=== PATIENT | female | born 1950 | race Caucasian/White ===

== ENCOUNTER → 2022-01-19 13:42 | Outpatient (BNVA) | payer MEDICARE, SELFPAY | PROVIDERS: PCP Internal Medicine; Visit Provider Anesthesiology | DX: M48.00 Spinal stenosis, site unspecified (principal); M51.36 Other intervertebral disc degeneration, lumbar region; M43.16 Spondylolisthesis, lumbar region; G89.4 Chronic pain syndrome; M46.1 Sacroiliitis, not elsewhere classified; Z96.653 Presence of artificial knee joint, bilateral | CPT/HCPCS: 99202 ==

== ENCOUNTER 2022-02-22 06:36 | Outpatient (REF) | payer MEDICARE, SELFPAY ==
--- NOTE | ~2022-02-22 | FL_ITS ---
INDICATION: Intraoperative fluoroscopy. FLUOROSCOPY: Fluoroscopy Time: 0.4 minutes Dose: 9.46 mGy Images saved: 2 FINDINGS: Multiple intraoperative fluoroscopic images are submitted during reported bilateral sacroiliac joint injection. Correlation with operative report. Evaluation is limited secondary to fluoroscopic technique. IMPRESSION: Intra-operative fluoroscopic imaging provided by radiology during reported bilateral sacroiliac joint injection. Please refer to operative note for further information.
== END 2022-02-22 06:37 | disposition home or self-care (01) ==
LOC: CF 06:36
PROVIDERS: Visit Provider Anesthesiology
DX: M46.1 Sacroiliitis, not elsewhere classified (principal)
CPT/HCPCS: 27096

== ENCOUNTER → 2022-02-24 08:41 | Outpatient (BNVA) | payer MEDICARE, SELFPAY | PROVIDERS: PCP Internal Medicine; Visit Provider Anesthesiology | DX: M48.00 Spinal stenosis, site unspecified (principal); M51.36 Other intervertebral disc degeneration, lumbar region; M43.16 Spondylolisthesis, lumbar region; M46.1 Sacroiliitis, not elsewhere classified; M17.0 Bilateral primary osteoarthritis of knee; G89.4 Chronic pain syndrome; Z96.653 Presence of artificial knee joint, bilateral | CPT/HCPCS: Q3014 ==

== ENCOUNTER 2022-05-17 12:01 | Outpatient (REF) | payer MEDICARE, OTHER, SELFPAY ==
[2022-05-17 13:40] LABS: MANUAL DIFF FLAG NO
[2022-05-17 13:49] LABS: Basophils Percent Auto 0.4 % (0-2); Eosinophils Absolute Auto 0.3 X10*3/uL (0.0-0.4); Eosinophils Percent Auto 3.5 % (0-4); Hemoglobin 12.7 g/dl (12.0-16.0); Imm Gran Abs Auto 0.03 X10*3/uL (0.00-0.03); Imm Gran Pct Auto 0.4 % (0.0-0.4); Lymphocytes Absolute Auto 2.3 X10*3/uL (1.2-4.9); Lymphocytes Percent Auto 27.9 % (20-40); Mean Corpuscular HGB Conc 32.6 g/dl (31.0-35.0); Mean Corpuscular Hemoglobin 28.7 pg (27.0-33.0); Mean Corpuscular Volume 88.2 fL (80.0-98.0); Mean Platelet Volume 10.6 fL (9.4-12.3); Monocytes Absolute Auto 0.6 X10*3/uL (0.1-1.2); Monocytes Percent Auto 7.5 % (2-11); Neutrophils Percent Auto 60.3 % (45-73); Platelet Count 279 X10*3/uL (160-400); Red Blood Count 4.42 X10*6/uL (4.20-5.50); Red Cell Distribution Width 13.1 % (11.0-16.0); White Blood Count 8.4 X10*3/uL (4.8-10.8)
[2022-05-17 13:54] LABS: Prothrombin Time 11.6 SEC (10.0-13.1)
== END 2022-05-17 12:02 | disposition home or self-care (01) ==
LOC: HO.10HDL 12:01
PROVIDERS: Visit Provider Anesthesiology
DX: C95.90 Leukemia, unspecified not having achieved remission (principal)
CPT/HCPCS: 36415; 85025; 85610

== ENCOUNTER 2022-06-10 06:30 | Day surgery (SDC) | payer MEDICARE, OTHER, SELFPAY ==
--- NOTE | ~2022-06-10 | FL_ITS ---
EXAMINATION: XR FLUOROSCOPY WITH IMAGES CLINICAL INFORMATION: SI joint intervention stimulation trial COMPARISON: Fluoroscopic spot views from pain management procedure 02/22/2022 TECHNIQUE: Fluoroscopy Supervised By: Dr. Howard Rodas. Fluoroscopy Time: 0.8 minutes. Cumulative Dose: 17.2 mGy. DAP: 4.70 Gycm2. Images: 2. FINDINGS: There are 2 electrode leads seen ascending the bilateral paraspinal region with tips near the lower aspect SI joints on each side. There is no kinking or fracture of the visualized leads. There is artifact from a sponge likely overlying the patient, right pelvis. FL/FL guidance in OR IMPRESSION: Fluoroscopy for pain management procedure.
[2022-06-10 06:41] VITALS: BMI 34.9
--- NOTE | 2022-06-10 06:44 | PC.NURSE ---
mrsa ordered, dr yoon does not want
[2022-06-10 06:55] VITALS: BP 135/61; PULSE 90; RESP 16; TEMP 36.3; O2SAT 96
[2022-06-10 07:04] LABS: Glucose, Whole Blood 131 mg/dL (60-115)
--- NOTE | 2022-06-10 07:04 | P.HPSUR_ITS ---
Pre-Procedural Eval Section A Date of Service: 06/10/22 The patient is an INPATIENT: No Changes since office visit: Yes Patient answered all questions The History & Physical has been completed within 30 days and I have reviewed it.: No Section B Chief Complaint: Sacroiliitis, not elsewhere classified Details of Present Illness: as above Relevant Family History (Specify if Yes): No Relevant Social History: None Present Medications: see Short Stay Collaborative assessment Medical History: No relevant PMH History of Previous Operations: No relevant previous surgery Allergies: Allergies Allergy/AdvReac Type Severity Reaction Status Date / Time acetaminophen [From Percocet] AdvReac Nausea and Verified 02/24/22 08:38 Vomiting celecoxib [From Celebrex] AdvReac Shortness Verified 02/24/22 08:38 of Breath diclofenac AdvReac acid reflux Verified 02/24/22 08:38 eszopiclone [From Lunesta] AdvReac sleep walk Verified 02/24/22 08:38 fluoxetine [From Prozac] AdvReac seeing Verified 02/24/22 08:38 trails gabapentin AdvReac Hypertensio Verified 02/24/22 08:38 n meloxicam AdvReac Shortness Verified 02/24/22 08:38 of Breath meperidine [From Demerol] AdvReac Nausea and Verified 02/24/22 08:38 Vomiting NSAIDS (Non-Steroidal AdvReac acid reflux Verified 02/24/22 08:38 Anti-Inflamma oxycodone [From Percocet] AdvReac Nausea and Verified 02/24/22 08:38 Vomiting venlafaxine [From Effexor] AdvReac hot flashes Verified 02/24/22 08:38 zolpidem [From Ambien] AdvReac Unknown Verified 02/24/22 08:38 nickel Allergy Unknown Uncoded 02/24/22 08:38 cholestryram powder AdvReac Muscle Pain Uncoded 02/24/22 08:38 statin drugs AdvReac Muscle Pain Uncoded 02/24/22 08:38 Review of Systems Sugical H&P ROS: Negative: Constitution, Cardiovascular, Respiratory, Neurological, Psychiatric, Allergic/Immunologic, Gastrointestinal, Musculoskeletal, Integumentary and Eyes/Ears/Nose/Throat and Yes, Specify: Hem- Onc, Genitourinary (sacroiliitis) and Endocrine (DM) Exam Surgical H&P Exam: Normal: HEENT, Normal: Heart, Normal: Lungs, Normal: Ext remities, Normal: Abdomen, Normal: Skin and Normal: Neurological Plan Diagnosis/Plan: Unchanged I have reviewed the history and physical and performed a pertinent physical examination on my patient. No changes have occurred unless specified. Time Spent With Patient Time: Total time managing care of this patient today ____ minutes.
--- NOTE | 2022-06-10 08:24 | HO.ANESPROP2 ---
HPI - Anesthesia Eval Consult details Narrative: chronic back pain PMFSH Active Problems Active Problems: All Active Problems (Updated 05/16/22 @ 14:49 by Howard Rodas MD) Central stenosis of spinal canal (Acute) Disc degeneration, lumbar (Acute) Spondylolisthesis, lumbar region (Acute) Chronic pain syndrome (Acute) Sacroiliitis (Acute) Osteoarthritis of knees, bilateral (Acute) Status post total knee replacement, bilateral (Acute) Leukemia (Acute) Leukemia (Acute) Past Medical History Medical History (Updated 05/16/22 @ 14:49 by Howard Rodas MD) Arthritis Bursitis of both knees Chronic depression Chronic myeloid leukemia Dermatographia Diabetes High blood pressure Moderate COPD (chronic obstructive pulmonary disease) Tendinitis of both knees Family History Family history of problems with anesthesia: No Surgical History Surgical History (Updated 06/08/22 @ 15:38 by Kenzie Ching RN) History of total bilateral knee replacement History of Problems with Anesthesia: No Social History Social History Patient Tobacco Use Status: Former Tobacco user Use of substances other than those prescribed or required for medical reasons: No Advance Directives: No Advance Directives Information Provided: Yes Meds Allergies Allergy/AdvReac Type Severity Reaction Status Date / Time acetaminophen [From Percocet] AdvReac Nausea and Verified 02/24/22 08:38 Vomiting celecoxib [From Celebrex] AdvReac Shortness Verified 02/24/22 08:38 of Breath diclofenac AdvReac acid reflux Verified 02/24/22 08:38 eszopiclone [From Lunesta] AdvReac sleep walk Verified 02/24/22 08:38 fluoxetine [From Prozac] AdvReac seeing Verified 02/24/22 08:38 trails gabapentin AdvReac Hypertensio Verified 02/24/22 08:38 n meloxicam AdvReac Shortness Verified 02/24/22 08:38 of Breath meperidine [From Demerol] AdvReac Nausea and Verified 02/24/22 08:38 Vomiting NSAIDS (Non-Steroidal AdvReac acid reflux Verified 02/24/22 08:38 Anti-Inflamma oxycodone [From Percocet] AdvReac Nausea and Verified 02/24/22 08:38 Vomiting venlafaxine [From Effexor] AdvReac hot flashes Verified 02/24/22 08:38 zolpidem [From Ambien] AdvReac Unknown Verified 02/24/22 08:38 nickel Allergy Unknown Uncoded 02/24/22 08:38 cholestryram powder AdvReac Muscle Pain Uncoded 02/24/22 08:38 statin drugs AdvReac Muscle Pain Uncoded 02/24/22 08:38 Home Medications Medication Instructions Recorded Confirmed Last Taken Type acetaminophen 300 mg-codeine 30 mg tab PO 01/19/22 Unknown History tablet albuterol sulfate 90 mcg/actuation 2 puff inhalation Q4H PRN wheezing 01/19/22 Unknown History aerosol inhaler bupropion HCl 150 mg 24 hr tablet, 150 mg PO QAM 01/19/22 Unknown History extended release ezetimibe 10 mg tablet 10 mg PO DAILY 01/19/22 Unknown History fluticasone propionate 50 1 spray intranasal DAILY 01/19/22 Unknown History mcg/actuation nasal spray,suspension losartan 50 mg tablet 50 mg PO DAILY 01/19/22 Unknown History nilotinib 200 mg capsule (Tasigna) 400 mg PO BID 01/19/22 Unknown History Exam Exam Date and Time: June 10, 2022823 Height,Weight and Vital Signs: Height 5 ft 2 in Weight 86.636 kg Last Vital Signs Temp 97.4 F 06/10/22 06:55 Pulse 90 06/10/22 06:55 Resp 16 06/10/22 06:55 BP 135/61 06/10/22 06:55 Pulse Ox 96 06/10/22 06:55 O2 Del Method 06/10/22 06:55 Pertinent Lab Results Pertinent Lab Results: Laboratory Tests 06/10/22 07:00 POC Glucose 131 H Airway Mallampati Class: II TM Dist: >3cm Neck ROM: Full Denture: Upper and Lower Heart: Rr Lungs: Cta Assessment and Plan Final Anesthetic Review Family History of Problems with Anesthesia: No History of Problems with Anesthesia: No NPO: Yes ASA Class: III Final Preanesthetic Review: No Changes in Pt Med Stat, Meds/Allgs Chart Reviewed, Consent Obtained/Reviewed and Anes Risks/Benef Reviewed Patient Risk: Intermediate Procedure Risk: Low Anesthetic Plan Anesthetic Plan: MAC: Disposition: Standard PACU
[2022-06-10 09:19] VITALS: BP 121/75; PULSE 81; RESP 16; TEMP 36.4; O2SAT 98
[2022-06-10 09:33] VITALS: BP 142/75; PULSE 84; RESP 18; O2SAT 97
--- NOTE | 2022-06-10 09:40 | PM.OP ---
Brief Operative Note Date of Service: 06/10/22 Pre-op diagnosis: sacroiliitis Procedure: trial of PNS stimwave bilateral SI joint innervation stimulation. Surgeon: Howard Rodas MD Anesthesia: MAC Was an Pantograph Engraver used for this Procedure?: No Estimated blood loss (mL): 3 Condition: stable Disposition: PACU
--- NOTE | 2022-06-10 09:42 | P.OP_ITS ---
Operative Note Operative Note Date of Service: 06/10/22 Narrative: Trial of the sacroiliac joint innervation stimulation stim wave bilateral. Informed consent was thoroughly explained to the patient before moving her to the operating room.? Risks and benefits were explained and all the questions were answered. Patient ? was taken to the operating room, she was positioned prone on the operating table with the pillow under her pelvis.? [place] [employer] monitors were applied and patient was deeply sedated. Time out was performed delineated correct name and of the patient, site, side and nature of the procedure, risks of DVT and fire, need for antibiotics. she received 2 g of cefazolin approximately 15 minutes before the onset of the procedure. Her lower back and buttocks was prepped with ChloraPrep twice, and draped with sterile towels.? Sterilely draped C-arm was brought over the operating field and sq picture of patient's pelvis was demonstrated on the screen.? Attention was concentrated on the? Right SI joint first. The sacral ala on the? right was chosen as a target of the needles insertion. 3 cm above the sacral ala projection in the lumbar area injection of the local anesthetic was performed in the skin. Using 11 blade scalpel small lety in the skin was performed. 16 gauge introducer stimwave malleable needle? was inserted through the lety and advanced toward the sacral alae on the right.? After needle met the bone on sacral ala it was redirected slightly posterior and continued to advance alongside the curvature of the sacral bone.? When the tip of the needle reached the end of the projection of the sacroiliac joint inferiorly advancement stopped and guitar wire was introduced into the needle.? It went through the needle without difficulties.. ?After that 8 electrode stimulating array lead was inserted through the needle and advanced to the desired position.? The needle was removed and care was taken not to dislodge the lead.? The driving stylet was removed from the lead and it was replaced with stimulating copper wire antenna electrode.? After that the knot was tied just below the level of the 2nd antenna contact.? Mastisol was applied to the skin a and Steri-Strips was used to fix the stimulating leads to the skin. After that the attention was concentrated on the left side where the procedure was performed in the mirroring fashion. Upon completion of the electrodes insertion sterile dressing applied, stimulating pad was applied and taped to the skin using Medipore tape. Upon completion of the procedure the patient was awaken she was taken outside of the operating room to recovery room where she recovered uneventfully.
[2022-06-10 09:48] VITALS: BP 142/67; PULSE 80; RESP 18; TEMP 36.6; O2SAT 97
[2022-06-10 10:27] LABS: MRSA Nasal PCR NEGATIVE (Negative); SA Nasal PCR NEGATIVE (Negative)
== END 2022-06-10 10:45 | disposition home or self-care (01) ==
PROVIDERS: Nurse Practitioner Family; PCP Internal Medicine; Visit Provider Anesthesiology
PROC: (CPT 64555; principal; 2022-06-10 07:30)
DX: M46.1 Sacroiliitis, not elsewhere classified (principal); G89.4 Chronic pain syndrome; M48.00 Spinal stenosis, site unspecified; M43.16 Spondylolisthesis, lumbar region; M51.36 Other intervertebral disc degeneration, lumbar region; M17.0 Bilateral primary osteoarthritis of knee; E11.9 Type 2 diabetes mellitus without complications; C92.11 Chronic myeloid leukemia, BCR/ABL-positive, in remission; Z92.21 Personal history of antineoplastic chemotherapy; J44.9 Chronic obstructive pulmonary disease, unspecified; F32.A Depression, unspecified; Z79.51 Long term (current) use of inhaled steroids; Z79.899 Other long term (current) drug therapy; Z88.8 Allergy status to other drugs, medicaments and biological substances; Z96.653 Presence of artificial knee joint, bilateral; Z87.891 Personal history of nicotine dependence
CPT/HCPCS: 64555 ×2; 82947; 87640; 87641; C1897; J0690; J2250; J2795

== ENCOUNTER → 2022-06-16 08:31 | Outpatient (BNVA) | payer MEDICARE, OTHER, SELFPAY | PROVIDERS: PCP Internal Medicine; Visit Provider Anesthesiology | DX: M48.00 Spinal stenosis, site unspecified (principal); M51.36 Other intervertebral disc degeneration, lumbar region; M43.16 Spondylolisthesis, lumbar region; M46.1 Sacroiliitis, not elsewhere classified; M17.0 Bilateral primary osteoarthritis of knee; G89.4 Chronic pain syndrome; Z96.653 Presence of artificial knee joint, bilateral | CPT/HCPCS: 99212 ==

== ENCOUNTER 2022-07-11 06:37 | Day surgery (SDC) | payer MEDICARE, OTHER, SELFPAY ==
[2022-06-21 09:09] VITALS: BMI 36.2
--- NOTE | 2022-07-07 14:44 | MHC.SHP ---
Pre-Procedural Eval Section A Date of Service: 07/07/22 The patient is an INPATIENT: No Changes since office visit: No Cold of Flu in the past 2 weeks, No New Medical Problems, No Changes in Medication and No Patient answered all questions The History & Physical has been completed within 30 days and I have reviewed it.: Yes Section B Chief Complaint: Age-related nuclear cataract, left eye Allergies: Allergies Allergy/AdvReac Type Severity Reaction Status Date / Time fluoxetine [From Prozac] AdvReac Severe seeing Verified 06/21/22 09:05 trails celecoxib [From Celebrex] AdvReac Intermediate Shortness Verified 06/21/22 09:05 of Breath diclofenac AdvReac Intermediate acid reflux Verified 06/21/22 09:05 eszopiclone [From Lunesta] AdvReac Intermediate sleep walk Verified 06/21/22 09:05 gabapentin AdvReac Intermediate Hypertensio Verified 06/21/22 09:05 n meloxicam AdvReac Intermediate Shortness Verified 06/21/22 09:05 of Breath meperidine [From Demerol] AdvReac Intermediate Nausea and Verified 06/21/22 09:05 Vomiting NSAIDS (Non-Steroidal AdvReac Intermediate acid reflux Verified 06/21/22 09:05 Anti-Inflamma oxycodone [From Percocet] AdvReac Intermediate Nausea and Verified 06/21/22 09:05 Vomiting venlafaxine [From Effexor] AdvReac Intermediate hot flashes Verified 06/21/22 09:05 zolpidem [From Ambien] AdvReac Unknown Unknown Verified 06/21/22 09:06 nickel Allergy Unknown Unknown Uncoded 06/21/22 09:06 cholestryram powder AdvReac Intermediate Muscle Pain Uncoded 06/21/22 09:06 statin drugs AdvReac Intermediate Muscle Pain Uncoded 06/21/22 09:06 Plan Diagnosis/Plan: Unchanged I have reviewed the history and physical and performed a pertinent physical examination on my patient. No changes have occurred unless specified. Time Spent With Patient Time: Total time managing care of this patient today ____ minutes.
[2022-07-11 07:08] VITALS: BP 145/75; PULSE 72; RESP 18; TEMP 36.6; O2SAT 96
[2022-07-11 07:22] LABS: Glucose, Whole Blood 119 mg/dL (60-115)
--- NOTE | 2022-07-11 07:24 | P.CONAN_ITS ---
[facility], [facility] Active Problems Active Problems: All Active Problems (Updated 06/21/22 @ 09:04 by Kenzie Ching RN) Central stenosis of spinal canal (Acute) Disc degeneration, lumbar (Acute) Spondylolisthesis, lumbar region (Acute) Chronic pain syndrome (Acute) Sacroiliitis (Acute) Osteoarthritis of knees, bilateral (Acute) Status post total knee replacement, bilateral (Acute) Leukemia (Acute) Leukemia (Acute) Past Medical History Medical History (Updated 06/21/22 @ 09:04 by Kenzie Ching RN) Arthritis Bursitis of both knees Chronic depression Chronic myeloid leukemia Dermatographia Diabetes Elevated cholesterol High blood pressure Lumbar stenosis Moderate COPD (chronic obstructive pulmonary disease) Osteopenia Tendinitis of both knees Uterine cancer Family History Family history of problems with anesthesia: No Surgical History Surgical History (Updated 06/21/22 @ 09:04 by Kenzie Ching RN) History of bilateral carpal tunnel release History of breast lump/mass excision History of dilatation and curettage History of excision of pilonidal cyst History of total bilateral knee replacement Hx of colonoscopy Hx of hysterectomy Hx of left knee surgery Hx of tonsillectomy History of Problems with Anesthesia: No Social History Social History Are you a primary personal carer to a significant other at home: No Do you presently have visiting nurse or other home services: Yes (home health aid 3X/week) Patient Tobacco Use Status: Former Tobacco user Quit Date: 1999 Tobacco use type: Cigarette Use of substances other than those prescribed or required for medical reasons: No Have you been hit, kicked, punched, or otherwise hurt by someone within the past year? If so, by whom?: No Are you DNR?: No Advance Directives: No Advance Directives Information Provided: Yes (brochure mailed) Advance Directives on File: No Recently lost weight without trying: No Eating poorly because of decreased appetite: No Nutrition Risks: No Nutritional Risk Poor oral hygiene: No (upper & lower full denture) Meds Allergies Allergy/AdvReac Type Severity Reaction Status Date / Time fluoxetine [From Prozac] AdvReac Severe seeing Verified 06/21/22 09:05 trails celecoxib [From Celebrex] AdvReac Intermediate Shortness Verified 06/21/22 09:05 of Breath diclofenac AdvReac Intermediate acid reflux Verified 06/21/22 09:05 eszopiclone [From Lunesta] AdvReac Intermediate sleep walk Verified 06/21/22 09:05 gabapentin AdvReac Intermediate Hypertensio Verified 06/21/22 09:05 n meloxicam AdvReac Intermediate Shortness Verified 06/21/22 09:05 of Breath meperidine [From Demerol] AdvReac Intermediate Nausea and Verified 06/21/22 09:05 Vomiting NSAIDS (Non-Steroidal AdvReac Intermediate acid reflux Verified 06/21/22 09:05 Anti-Inflamma oxycodone [From Percocet] AdvReac Intermediate Nausea and Verified 06/21/22 09:05 Vomiting venlafaxine [From Effexor] AdvReac Intermediate hot flashes Verified 06/21/22 09:05 zolpidem [From Ambien] AdvReac Unknown Unknown Verified 06/21/22 09:06 nickel Allergy Unknown Unknown Uncoded 06/21/22 09:06 cholestryram powder AdvReac Intermediate Muscle Pain Uncoded 06/21/22 09:06 statin drugs AdvReac Intermediate Muscle Pain Uncoded 06/21/22 09:06 Active Medications: Current Medications Albuterol Sulfate (Albuterol Sulfate (0.083%) 2.5 Mg/3 Ml Vial.Neb) 2.5 mg INHALE ONCE PRN PRN Reason: Shortness of Breath/Wheezing Lactated Ringer's (Lr) 500 mls @ 50 mls/hr IV .Q10H ANTON Stop: 07/11/22 16:59 Povidone Iodine (Povidone Iodine 5 % Ophth Soln 30 Ml Bottle) 1 appl EYE-RIGHT PREOP PRN PRN Reason: Pre-Op Surgical Implant Prophy Povidone Iodine (Povidone Iodine 5 % Ophth Soln 30 Ml Bottle) 1 appl EYE-LEFT PREOP PRN PRN Reason: Pre-Op Surgical Implant Prophy Home Medications Medication Instructions Recorded Confirmed Last Taken Type acetaminophen 300 mg-codeine 30 mg 1 tab PO Q4H pain 01/19/22 06/21/22 Unknown History tablet albuterol sulfate 90 mcg/actuation 2 puff inhalation Q4H PRN wheezing 01/19/22 06/21/22 Unknown History aerosol inhaler ezetimibe 10 mg tablet 10 mg PO DAILY 01/19/22 06/21/22 Unknown History fluticasone propionate 50 1 spray intranasal DAILY 10/05/22 03/07/23 Unknown History mcg/actuation nasal spray,suspension losartan 50 mg tablet 50 mg PO DAILY 01/19/22 06/21/22 Unknown History acetaminophen 500 mg tablet 1 tab PO Q6H PRN Pain 06/21/22 06/21/22 Unknown History biotin 5 mg capsule 5 mg PO DAILY 06/21/22 06/21/22 Unknown History cholecalciferol (vitamin D3) 25 25 mcg PO DAILY 06/21/22 06/21/22 Unknown History mcg (1,000 unit) capsule (Vitamin D3) cimetidine 400 mg tablet 400 mg PO BID 06/21/22 06/21/22 Unknown History docusate sodium 100 mg capsule 100 mg PO DAILY 06/21/22 06/21/22 Unknown History fluticasone propionate 115 2 puff inhalation BID 06/21/22 06/21/22 Unknown History mcg-salmeterol 21 mcg/actuation HFA inhaler (Advair HFA) hydrochlorothiazide 12.5 mg tablet 1 tab PO DAILY 06/21/22 06/21/22 Unknown History imatinib 400 mg tablet 400 mg PO DAILY 06/21/22 06/21/22 Unknown History melatonin 5 mg tablet 5 mg PO BEDTIME 06/21/22 06/21/22 Unknown History multivitamin 1 tab PO DAILY 06/21/22 06/21/22 Unknown History Exam Exam Date and Time: July 11, 2022723 Height,Weight and Vital Signs: Height 5 ft 2 in Weight 89.811 kg Last Vital Signs Temp 97.9 F 07/11/22 07:08 Pulse 72 07/11/22 07:08 Resp 18 07/11/22 07:08 BP 145/75 H 07/11/22 07:08 Pulse Ox 96 07/11/22 07:08 O2 Del Method Room Air 07/11/22 07:08 Pertinent Lab Results Pertinent Lab Results: Laboratory Tests 07/11/22 07:16 POC Glucose 119 H Airway Mallampati Class: II (edentulous) TM Dist: >3cm Neck ROM: Full Heart: rrr Lungs: cta Assessment and Plan Assessment Anesthesia Assessment: Anesthesia Plan Discussed and Chart Reviewed Final Anesthetic Review Family History of Problems with Anesthesia: No History of Problems with Anesthesia: No NPO: Yes ASA Class: III Final Preanesthetic Review: No Changes in Pt Med Stat, Meds/Allgs Chart Reviewed and Consent Obtained/Reviewed Patient Risk: Intermediate Procedure Risk: Intermediate Anesthetic Plan Anesthetic Plan: MAC: Disposition: Standard PACU
[2022-07-11] MEDS: Phenylephrine HCL 2.5% Oph SoL 2 ML BOTTLE 1 DROP EYE-LEFT ×3 (07:27→07:38)
[2022-07-11] MEDS: Tetracaine HCl/PF 0.5% Oph Sol 4 ML DROPS 1 DROP EYE-LEFT ×2 (07:27→07:30)
[2022-07-11] MEDS: Cyclopentolate 1 % Ophth Sol 2 ML DRPBTL 1 DROP EYE-LEFT ×3 (07:28→07:38)
[2022-07-11] MEDS: Ketorolac Tromethamine 0.5% Op 5 ML DROPS 1 DROP EYE-LEFT ×3 (07:28→07:38)
[2022-07-11] MEDS: Tropicamide 1 % Ophth Sol 3 ML BTL 1 DROP EYE-LEFT ×3 (07:29→07:38)
[2022-07-11] MEDS: Lactated Ringers 500 ML 50 ML IV (07:41)
--- NOTE | 2022-07-11 08:18 | HO.PNOPHT ---
Ophthalmology Procedure Procedure Date of Service: 07/11/22 Ophthalmology Viscoelastic: Healsabina Britot Dual Pack Pro Ophthalmology Lenses: TECNIS [id number] (22.5) Procedure Notes: PREOPERATIVE DIAGNOSIS: Decreased visual acuity left eye secondary to cataract POSTOPERATIVE DIAGNOSIS: Same PROCEDURE: Left cataract extraction with intraocular lens insertion SURGEON: Phillip Garcia M.D. ANESTHESIA: Topical/MAC ESTIMATED BLOOD LOSS: None COMPLICATIONS: None After obtaining informed consent, the patient was brought to the operation room suite and placed in the supine position. After adequate sedation per anesthesia, topical drops of Tetracaine were given to the left eye. The eye was then prepped and draped in the usual sterile fashion. The operating room microscope was then positioned over the operative eye and a lid speculum placed. A paracentesis was created. Viscoelastic was then instilled into the anterior chamber. A three plane incision was then created temporally, utilizing a 2.85 mm keratome. Capsulotomy forceps were then utilized to create a circular tear capsulotomy. Hydrodissection and hydrodelineation were carried out until adequate mobilization of the nucleus occurred. Phacoemulsification was then utilized to remove the dense central nucleus followed by removal of the cortical material utilizing the automated aspiration irrigation unit. Viscoat elastic was instilled into the posterior capsular bag followed by placement of a posterior chamber intraocular lens without difficulty. The residual Viscoat elastic was then removed utilizing the automated IA machine. The wound was check and found to be watertight. The patient tolerated the procedure well and the lid speculum was removed. Intracameral injection of Vigamox 0.1 mL followed by a subtenon injection of Kenalog-40 0.2 mL were administered. The patient will be seen in the a.m.
[2022-07-11 08:40] VITALS: BP 157/69; PULSE 87; RESP 18; TEMP 36.8; O2SAT 100
== END 2022-07-11 09:00 | disposition home or self-care (01) ==
PROVIDERS: PCP Internal Medicine; Visit Provider Ophthalmology
PROC: (CPT 66985; principal; 2022-07-11 08:20)
DX: H25.12 Age-related nuclear cataract, left eye (principal); H54.7 Unspecified visual loss; H18.413 Arcus senilis, bilateral; E11.9 Type 2 diabetes mellitus without complications; I10 Essential (primary) hypertension; E78.00 Pure hypercholesterolemia, unspecified; J44.9 Chronic obstructive pulmonary disease, unspecified; C92.10 Chronic myeloid leukemia, BCR/ABL-positive, not having achieved remission; Z79.51 Long term (current) use of inhaled steroids; Z79.899 Other long term (current) drug therapy; Z88.8 Allergy status to other drugs, medicaments and biological substances; Z87.891 Personal history of nicotine dependence
CPT/HCPCS: 66984; 82947; J2250; J3010; J3301; V2632

== ENCOUNTER 2022-07-25 06:58 | Day surgery (SDC) | payer MEDICARE, OTHER, SELFPAY ==
[2022-06-21 09:06] VITALS: BMI 36.2
--- NOTE | 2022-06-24 09:03 | MHC.SHP ---
Pre-Procedural Eval Section A Date of Service: 06/24/22 The patient is an INPATIENT: No Changes since office visit: No Cold of Flu in the past 2 weeks, No New Medical Problems, No Changes in Medication and No Patient answered all questions The History & Physical has been completed within 30 days and I have reviewed it.: Yes Section B Chief Complaint: Age-related nuclear cataract, right eye Allergies: Allergies Allergy/AdvReac Type Severity Reaction Status Date / Time fluoxetine [From Prozac] AdvReac Severe seeing Verified 06/21/22 09:05 trails celecoxib [From Celebrex] AdvReac Intermediate Shortness Verified 06/21/22 09:05 of Breath diclofenac AdvReac Intermediate acid reflux Verified 06/21/22 09:05 eszopiclone [From Lunesta] AdvReac Intermediate sleep walk Verified 06/21/22 09:05 gabapentin AdvReac Intermediate Hypertensio Verified 06/21/22 09:05 n meloxicam AdvReac Intermediate Shortness Verified 06/21/22 09:05 of Breath meperidine [From Demerol] AdvReac Intermediate Nausea and Verified 06/21/22 09:05 Vomiting NSAIDS (Non-Steroidal AdvReac Intermediate acid reflux Verified 06/21/22 09:05 Anti-Inflamma oxycodone [From Percocet] AdvReac Intermediate Nausea and Verified 06/21/22 09:05 Vomiting venlafaxine [From Effexor] AdvReac Intermediate hot flashes Verified 06/21/22 09:05 zolpidem [From Ambien] AdvReac Unknown Unknown Verified 06/21/22 09:06 nickel Allergy Unknown Unknown Uncoded 06/21/22 09:06 cholestryram powder AdvReac Intermediate Muscle Pain Uncoded 06/21/22 09:06 statin drugs AdvReac Intermediate Muscle Pain Uncoded 06/21/22 09:06 Plan Diagnosis/Plan: Unchanged I have reviewed the history and physical and performed a pertinent physical examination on my patient. No changes have occurred unless specified. Time Spent With Patient Time: Total time managing care of this patient today ____ minutes.
--- NOTE | 2022-06-24 10:15 | HO.ANESPROP2 ---
HPI - Anesthesia Eval Consult details Narrative: 72yo F for Right Cataract Extraction IOL Insertion PCP cleared No previous cataract on record [facility] Active Problems Active Problems: All Active Problems (Updated 06/21/22 @ 09:04 by Kenzie Ching RN) Central stenosis of spinal canal (Acute) Disc degeneration, lumbar (Acute) Spondylolisthesis, lumbar region (Acute) Chronic pain syndrome (Acute) Sacroiliitis (Acute) Osteoarthritis of knees, bilateral (Acute) Status post total knee replacement, bilateral (Acute) Leukemia (Acute) Leukemia (Acute) Past Medical History Medical History (Updated 06/21/22 @ 09:04 by Kenzie Ching RN) Arthritis Bursitis of both knees Chronic depression Chronic myeloid leukemia Dermatographia Diabetes Elevated cholesterol High blood pressure Lumbar stenosis Moderate COPD (chronic obstructive pulmonary disease) Osteopenia Tendinitis of both knees Uterine cancer Family History Family history of problems with anesthesia: No Surgical History Surgical History (Updated 06/21/22 @ 09:04 by Kenzie Ching RN) History of bilateral carpal tunnel release History of breast lump/mass excision History of dilatation and curettage History of excision of pilonidal cyst History of total bilateral knee replacement Hx of colonoscopy Hx of hysterectomy Hx of left knee surgery Hx of tonsillectomy History of Problems with Anesthesia: No Social History Social History Are you a primary animal daycare provider to a significant other at home: No Do you presently have visiting nurse or other home services: Yes (home health aid 3X/week) Patient Tobacco Use Status: Former Tobacco user Quit Date: 1999 Tobacco use type: Cigarette Meds Allergies Allergy/AdvReac Type Severity Reaction Status Date / Time fluoxetine [From Prozac] AdvReac Severe seeing Verified 06/21/22 09:05 trails celecoxib [From Celebrex] AdvReac Intermediate Shortness Verified 06/21/22 09:05 of Breath diclofenac AdvReac Intermediate acid reflux Verified 06/21/22 09:05 eszopiclone [From Lunesta] AdvReac Intermediate sleep walk Verified 06/21/22 09:05 gabapentin AdvReac Intermediate Hypertensio Verified 06/21/22 09:05 n meloxicam AdvReac Intermediate Shortness Verified 06/21/22 09:05 of Breath meperidine [From Demerol] AdvReac Intermediate Nausea and Verified 06/21/22 09:05 Vomiting NSAIDS (Non-Steroidal AdvReac Intermediate acid reflux Verified 06/21/22 09:05 Anti-Inflamma oxycodone [From Percocet] AdvReac Intermediate Nausea and Verified 06/21/22 09:05 Vomiting venlafaxine [From Effexor] AdvReac Intermediate hot flashes Verified 06/21/22 09:05 zolpidem [From Ambien] AdvReac Unknown Unknown Verified 06/21/22 09:06 nickel Allergy Unknown Unknown Uncoded 06/21/22 09:06 cholestryram powder AdvReac Intermediate Muscle Pain Uncoded 06/21/22 09:06 statin drugs AdvReac Intermediate Muscle Pain Uncoded 06/21/22 09:06 Home Medications Medication Instructions Recorded Confirmed Last Taken Type acetaminophen 300 mg-codeine 30 mg 1 tab PO Q4H pain 01/19/22 06/21/22 Unknown History tablet albuterol sulfate 90 mcg/actuation 2 puff inhalation Q4H PRN wheezing 01/19/22 06/21/22 Unknown History aerosol inhaler ezetimibe 10 mg tablet 10 mg PO DAILY 01/19/22 06/21/22 Unknown History fluticasone propionate 50 1 spray intranasal DAILY 01/19/22 06/21/22 Unknown History mcg/actuation nasal spray,suspension losartan 50 mg tablet 50 mg PO DAILY 01/19/22 06/21/22 Unknown History acetaminophen 500 mg tablet 1 tab PO Q6H PRN Pain 06/21/22 06/21/22 Unknown History biotin 5 mg capsule 5 mg PO DAILY 06/21/22 06/21/22 Unknown History cholecalciferol (vitamin D3) 25 25 mcg PO DAILY 06/21/22 06/21/22 Unknown History mcg (1,000 unit) capsule (Vitamin D3) cimetidine 400 mg tablet 400 mg PO BID 06/21/22 06/21/22 Unknown History docusate sodium 100 mg capsule 100 mg PO DAILY 06/21/22 06/21/22 Unknown History fluticasone propionate 115 2 puff inhalation BID 06/21/22 06/21/22 Unknown History mcg-salmeterol 21 mcg/actuation HFA inhaler (Advair HFA) hydrochlorothiazide 12.5 mg tablet 1 tab PO DAILY 06/21/22 06/21/22 Unknown History imatinib 400 mg tablet 400 mg PO DAILY 06/21/22 06/21/22 Unknown History melatonin 5 mg tablet 5 mg PO BEDTIME 06/21/22 06/21/22 Unknown History multivitamin 1 tab PO DAILY 06/21/22 06/21/22 Unknown History Exam Exam Date and Time: June 24, 2022 1015 Height,Weight and Vital Signs: Height 5 ft 2 in Weight 89.811 kg Assessment and Plan Assessment Anesthesia Assessment: Chart Reviewed Final Anesthetic Review Family History of Problems with Anesthesia: No History of Problems with Anesthesia: No
--- NOTE | 2022-07-24 11:03 | P.CONAN_ITS ---
[facility] Active Problems Active Problems: All Active Problems (Updated 06/21/22 @ 09:04 by Kenzie Ching RN) Central stenosis of spinal canal (Acute) Disc degeneration, lumbar (Acute) Spondylolisthesis, lumbar region (Acute) Chronic pain syndrome (Acute) Sacroiliitis (Acute) Osteoarthritis of knees, bilateral (Acute) Status post total knee replacement, bilateral (Acute) Leukemia (Acute) Leukemia (Acute) Past Medical History Medical History (Updated 06/21/22 @ 09:04 by Kenzie Ching RN) Arthritis Bursitis of both knees Chronic depression Chronic myeloid leukemia Dermatographia Diabetes Elevated cholesterol High blood pressure Lumbar stenosis Moderate COPD (chronic obstructive pulmonary disease) Osteopenia Tendinitis of both knees Uterine cancer Family History Family history of problems with anesthesia: No Surgical History Surgical History (Updated 06/21/22 @ 09:04 by Kenzie Ching RN) History of bilateral carpal tunnel release History of breast lump/mass excision History of dilatation and curettage History of excision of pilonidal cyst History of total bilateral knee replacement Hx of colonoscopy Hx of hysterectomy Hx of left knee surgery Hx of tonsillectomy History of Problems with Anesthesia: No Social History Social History Are you a primary health care social worker to a significant other at home: No Do you presently have visiting nurse or other home services: Yes (home health aid 3X/week) Patient Tobacco Use Status: Former Tobacco user Quit Date: 1999 Tobacco use type: Cigarette Use of substances other than those prescribed or required for medical reasons: No Have you been hit, kicked, punched, or otherwise hurt by someone within the past year? If so, by whom?: No Are you DNR?: No Advance Directives: No Advance Directives Information Provided: Yes (brochure mailed) Advance Directives on File: No Recently lost weight without trying: No Eating poorly because of decreased appetite: No Nutrition Risks: No Nutritional Risk Poor oral hygiene: No (upper & lower full denture) Meds Allergies Allergy/AdvReac Type Severity Reaction Status Date / Time fluoxetine [From Prozac] AdvReac Severe seeing Verified 06/21/22 09:05 trails celecoxib [From Celebrex] AdvReac Intermediate Shortness Verified 06/21/22 09:05 of Breath diclofenac AdvReac Intermediate acid reflux Verified 06/21/22 09:05 eszopiclone [From Lunesta] AdvReac Intermediate sleep walk Verified 06/21/22 09:05 gabapentin AdvReac Intermediate Hypertensio Verified 06/21/22 09:05 n meloxicam AdvReac Intermediate Shortness Verified 06/21/22 09:05 of Breath meperidine [From Demerol] AdvReac Intermediate Nausea and Verified 06/21/22 09:05 Vomiting NSAIDS (Non-Steroidal AdvReac Intermediate acid reflux Verified 06/21/22 09:05 Anti-Inflamma oxycodone [From Percocet] AdvReac Intermediate Nausea and Verified 06/21/22 09:05 Vomiting venlafaxine [From Effexor] AdvReac Intermediate hot flashes Verified 06/21/22 09:05 zolpidem [From Ambien] AdvReac Unknown Unknown Verified 06/21/22 09:06 nickel Allergy Unknown Unknown Uncoded 06/21/22 09:06 cholestryram powder AdvReac Intermediate Muscle Pain Uncoded 06/21/22 09:06 statin drugs AdvReac Intermediate Muscle Pain Uncoded 06/21/22 09:06 Active Medications: Current Medications Lactated Ringer's (Lr) 500 mls @ 50 mls/hr IVCONT .Q10H ANTON Home Medications Medication Instructions Recorded Confirmed Last Taken Type acetaminophen 300 mg-codeine 30 mg 1 tab PO Q4H pain 01/19/22 06/21/22 Unknown History tablet albuterol sulfate 90 mcg/actuation 2 puff inhalation Q4H PRN wheezing 01/19/22 06/21/22 Unknown History aerosol inhaler ezetimibe 10 mg tablet 10 mg PO DAILY 01/19/22 06/21/22 Unknown History fluticasone propionate 50 1 spray intranasal DAILY 01/19/22 06/21/22 Unknown History mcg/actuation nasal spray,suspension losartan 50 mg tablet 50 mg PO DAILY 01/19/22 06/21/22 Unknown History acetaminophen 500 mg tablet 1 tab PO Q6H PRN Pain 06/21/22 06/21/22 Unknown History biotin 5 mg capsule 5 mg PO DAILY 06/21/22 06/21/22 Unknown History cholecalciferol (vitamin D3) 25 25 mcg PO DAILY 06/21/22 06/21/22 Unknown History mcg (1,000 unit) capsule (Vitamin D3) cimetidine 400 mg tablet 400 mg PO BID 06/21/22 06/21/22 Unknown History docusate sodium 100 mg capsule 100 mg PO DAILY 06/21/22 06/21/22 Unknown History fluticasone propionate 115 2 puff inhalation BID 06/21/22 06/21/22 Unknown History mcg-salmeterol 21 mcg/actuation HFA inhaler (Advair HFA) hydrochlorothiazide 12.5 mg tablet 1 tab PO DAILY 06/21/22 06/21/22 Unknown History imatinib 400 mg tablet 400 mg PO DAILY 06/21/22 06/21/22 Unknown History melatonin 5 mg tablet 5 mg PO BEDTIME 06/21/22 06/21/22 Unknown History multivitamin 1 tab PO DAILY 06/21/22 06/21/22 Unknown History Exam Exam Date and Time: July 24, 2022 1103 Height,Weight and Vital Signs: Height 5 ft 2 in Weight 89.811 kg Airway Mallampati Class: II TM Dist: >3cm Neck ROM: Limited Heart: RRR Lungs: CTA Assessment and Plan Assessment Anesthesia Assessment: Anesthesia Plan Discussed and Chart Reviewed Final Anesthetic Review Family History of Problems with Anesthesia: No History of Problems with Anesthesia: No NPO: Yes ASA Class: II Final Preanesthetic Review: No Changes in Pt Med Stat, Meds/Allgs Chart Reviewed, Consent Obtained/Reviewed and Anes Risks/Benef Reviewed Patient Risk: Low Procedure Risk: Low Anesthetic Plan Anesthetic Plan: MAC: Disposition: Standard PACU
[2022-07-25] MEDS: Tetracaine HCl/PF 0.5% Oph Sol 4 ML DROPS 1 DROP EYE-RIGHT (07:32)
[2022-07-25] MEDS: Phenylephrine HCL 2.5% Oph SoL 2 ML BOTTLE 1 DROP EYE-RIGHT ×3 (07:33→07:55)
[2022-07-25] MEDS: Cyclopentolate 1 % Ophth Sol 2 ML DRPBTL 1 DROP EYE-RIGHT ×2 (07:33→07:55)
[2022-07-25] MEDS: Tropicamide 1 % Ophth Sol 3 ML BTL 1 DROP EYE-RIGHT ×3 (07:33→07:55)
[2022-07-25] MEDS: Lactated Ringers 500 ML 50 ML IVCONT (07:34)
[2022-07-25 07:40] VITALS: BP 134/65; PULSE 84; RESP 18; TEMP 36.6; O2SAT 97
[2022-07-25] MEDS: Ketorolac Tromethamine 0.5% Op 5 ML DROPS 1 DROP EYE-RIGHT ×3 (07:49→07:55)
--- NOTE | 2022-07-25 07:49 | PC.NURSE ---
Author verified with Dr. Sharma that patient has allergies and reactions reviewed. Dr. Shafer stated that he signed off that patient can have toradol eye drop today.
[2022-07-25 07:57] LABS: Glucose, Whole Blood 132 mg/dL (60-115)
--- NOTE | 2022-07-25 08:29 | HO.PNOPHT ---
Ophthalmology Procedure Procedure Date of Service: 07/25/22 Ophthalmology Viscoelastic: Jennifer Story Dual Pack Pro Ophthalmology Lenses: TECSANDY [id number] (23) Procedure Notes: PREOPERATIVE DIAGNOSIS: Decreased visual acuity right eye secondary to cataract POSTOPERATIVE DIAGNOSIS: Same PROCEDURE: Right cataract extraction with intraocular lens insertion SURGEON: Phililp Garcia M.D. ANESTHESIA: Topical/MAC ESTIMATED BLOOD LOSS: None COMPLICATIONS: None After obtaining informed consent, the patient was brought to the operating room suite and placed in the supine position. After adequate sedation per anesthesia, topical drops of Tetracaine were given to the right eye. The eye was then prepped and draped in the usual sterile fashion. The operating room microscope was then positioned over the operative eye and a lid speculum placed. A paracentesis was created. Viscoelastic was then instilled into the anterior chamber. A three plane incision was then created temporally, utilizing a 2.85 mm keratome. Capsulotomy forceps were then utilized to create a circular tear capsulotomy. Hydrodissection and hydrodelineation were carried out until adequate mobilization of the nucleus occurred. Phacoemulsification was then utilized to remove the dense central nucleus followed by removal of the cortical material utilizing the automated aspiration irrigation unit. Viscoelastic was instilled into the posterior capsular bag followed by placement of a posterior chamber intraocular lens without difficulty. The residual Viscoelastic was then removed utilizing the automated IA machine. The wound was checked and found to be watertight. The patient tolerated the procedure well and the lid speculum was removed. Intracameral injection of Vigamox 0.1 mL followed by a subtenon injection of Kenalog-40 0.2 mL were administered. The patient will be seen in the a.m.
[2022-07-25 08:58] VITALS: BP 122/65; PULSE 81; RESP 16; TEMP 36.3; O2SAT 95
== END 2022-07-25 09:06 | disposition home or self-care (01) ==
PROVIDERS: PCP Internal Medicine; Visit Provider Ophthalmology
PROC: (CPT 66985; principal; 2022-07-25 08:40)
DX: H25.11 Age-related nuclear cataract, right eye (principal); E11.9 Type 2 diabetes mellitus without complications; I10 Essential (primary) hypertension; J44.9 Chronic obstructive pulmonary disease, unspecified; Z88.5 Allergy status to narcotic agent; Z88.8 Allergy status to other drugs, medicaments and biological substances
CPT/HCPCS: 66984; 82947; J2250; J3010; J3301; V2632

== ENCOUNTER 2022-07-29 05:53 | Day surgery (SDC) | payer MEDICARE, OTHER, SELFPAY ==
[2022-07-27 14:38] VITALS: BMI 35.3
--- NOTE | 2022-07-28 12:04 | P.CONAN_ITS ---
Documented by User: oR Uribe NP 07/28/22 12:07 HPI - Anesthesia Eval Consult details Narrative: 72yo F for Bilateral Sacroiliac Joint Innerv Stim Implant s/p trial 05/2022 with MAC s/p cataracts 07/2022 with medical clearance *Multiple Med Allergies* PMFSH Active Problems Active Problems: All Active Problems (Updated 06/21/22 @ 09:04 by Kenzie Ching RN) Central stenosis of spinal canal (Acute) Disc degeneration, lumbar (Acute) Spondylolisthesis, lumbar region (Acute) Chronic pain syndrome (Acute) Sacroiliitis (Acute) Osteoarthritis of knees, bilateral (Acute) Status post total knee replacement, bilateral (Acute) Leukemia (Acute) Leukemia (Acute) Past Medical History Medical History Arthritis Bursitis of both knees Chronic depression Chronic myeloid leukemia Dermatographia Diabetes Elevated cholesterol High blood pressure Lumbar stenosis Moderate COPD (chronic obstructive pulmonary disease) Osteopenia Tendinitis of both knees Uterine cancer Family History Family history of problems with anesthesia: No Surgical History Surgical History (Updated 07/27/22 @ 13:50 by Kenzie Ching RN) History of bilateral carpal tunnel release History of breast lump/mass excision History of dilatation and curettage History of excision of pilonidal cyst History of surgery History of total bilateral knee replacement Hx of cataract extraction Hx of colonoscopy Hx of hysterectomy Hx of left knee surgery Hx of tonsillectomy History of Problems with Anesthesia: No Social History Social History Are you a primary associate director career services to a significant other at home: No Do you presently have visiting nurse or other home services: Yes (home health aid 3X/week) Patient Tobacco Use Status: Former Tobacco user Quit Date: 1999 Tobacco use type: Cigarette Use of substances other than those prescribed or required for medical reasons: No Have you been hit, kicked, punched, or otherwise hurt by someone within the past year? If so, by whom?: No Are you DNR?: No Advance Directives: No Advance Directives Information Provided: Yes (brochure mailed previously) Advance Directives on File: No Recently lost weight without trying: No Eating poorly because of decreased appetite: No Nutrition Risks: No Nutritional Risk Poor oral hygiene: No (upper & lower full denture) Meds Allergies Allergy/AdvReac Type Severity Reaction Status Date / Time fluoxetine [From Prozac] AdvReac Severe seeing Verified 07/25/22 07:15 trails celecoxib [From Celebrex] AdvReac Intermediate Shortness Verified 07/25/22 07:15 of Breath diclofenac AdvReac Intermediate acid reflux Verified 07/25/22 07:15 eszopiclone [From Lunesta] AdvReac Intermediate sleep walk Verified 07/25/22 07:15 gabapentin AdvReac Intermediate Hypertensio Verified 07/25/22 07:15 n meloxicam AdvReac Intermediate Shortness Verified 07/25/22 07:15 of Breath meperidine [From Demerol] AdvReac Intermediate Nausea and Verified 07/25/22 07:15 Vomiting NSAIDS (Non-Steroidal AdvReac Intermediate acid reflux Verified 07/25/22 07:15 Anti-Inflamma oxycodone [From Percocet] AdvReac Intermediate Nausea and Verified 07/25/22 07:15 Vomiting venlafaxine [From Effexor] AdvReac Intermediate hot flashes Verified 07/25/22 07:15 zolpidem [From Ambien] AdvReac Unknown Unknown Verified 07/25/22 07:15 ezetimibe AdvReac Joint Pain Verified 07/29/22 06:27 nickel Allergy Unknown Unknown Uncoded 07/25/22 07:15 cholestryram powder AdvReac Intermediate Muscle Pain Uncoded 07/25/22 07:15 statin drugs AdvReac Intermediate Muscle Pain Uncoded 07/25/22 07:15 Home Medications Medication Instructions Recorded Confirmed Last Taken Type acetaminophen 300 mg-codeine 30 mg 1 tab PO Q4H pain 01/19/22 07/27/22 Unknown History tablet albuterol sulfate 90 mcg/actuation 2 puff inhalation Q4H PRN wheezing 01/19/22 07/27/22 Unknown History aerosol inhaler fluticasone propionate 50 1 spray intranasal DAILY 01/19/22 07/27/22 Unknown History mcg/actuation nasal spray,suspension losartan 50 mg tablet 50 mg PO DAILY 01/19/22 07/27/22 Unknown History acetaminophen 500 mg tablet 1 tab PO Q6H PRN Pain 06/21/22 07/27/22 Unknown History biotin 5 mg capsule 5 mg PO DAILY 06/21/22 07/27/22 Unknown History cholecalciferol (vitamin D3) 25 25 mcg PO DAILY 06/21/22 07/27/22 Unknown History mcg (1,000 unit) capsule (Vitamin D3) cimetidine 400 mg tablet 400 mg PO BID 06/21/22 07/27/22 Unknown History docusate sodium 100 mg capsule 100 mg PO DAILY 06/21/22 07/27/22 Unknown History fluticasone propionate 115 2 puff inhalation BID 06/21/22 07/27/22 07/25/22 History mcg-salmeterol 21 mcg/actuation HFA inhaler (Advair HFA) hydrochlorothiazide 12.5 mg tablet 1 tab PO DAILY 06/21/22 07/27/22 Unknown History imatinib 400 mg tablet 400 mg PO DAILY 06/21/22 07/27/22 Unknown History melatonin 5 mg tablet 5 mg PO BEDTIME 06/21/22 07/27/22 Unknown History multivitamin 1 tab PO DAILY 06/21/22 07/27/22 Unknown History Exam Exam Date and Time: July 28, 2022 1204 Height,Weight and Vital Signs: Height 5 ft 2 in Weight 87.543 kg Pertinent Lab Results Pertinent Lab Results: Laboratory Tests 05/17/22 12:12 WBC 8.4 Hgb 12.7 Hct 39.0 Plt Count 279 Assessment and Plan Assessment Anesthesia Assessment: Chart Reviewed Final Anesthetic Review Family History of Problems with Anesthesia: No History of Problems with Anesthesia: No Documented by User: Giovani Rivera MD 07/29/22 08:19 [facility] Past Medical History Medical History Arthritis Bursitis of both knees Chronic depression Chronic myeloid leukemia Dermatographia Diabetes Elevated cholesterol High blood pressure Lumbar stenosis Moderate COPD (chronic obstructive pulmonary disease) Osteopenia Tendinitis of both knees Uterine cancer Surgical History Surgical History (Updated 07/27/22 @ 13:50 by Kenzie Ching RN) History of bilateral carpal tunnel release History of breast lump/mass excision History of dilatation and curettage History of excision of pilonidal cyst History of surgery History of total bilateral knee replacement Hx of cataract extraction Hx of colonoscopy Hx of hysterectomy Hx of left knee surgery Hx of tonsillectomy Social History Social History Are you a primary associate director career services to a significant other at home: No Do you presently have visiting nurse or other home services: Yes (home health aid 3X/week) Patient Tobacco Use Status: Former Tobacco user Quit Date: 1999 Tobacco use type: Cigarette Use of substances other than those prescribed or required for medical reasons: No Have you been hit, kicked, punched, or otherwise hurt by someone within the past year? If so, by whom?: No Are you DNR?: No Advance Directives: No Advance Directives Information Provided: Yes (brochure mailed previously) Advance Directives on File: No Recently lost weight without trying: No Eating poorly because of decreased appetite: No Nutrition Risks: No Nutritional Risk Poor oral hygiene: No (upper & lower full denture) Meds Allergies Allergy/AdvReac Type Severity Reaction Status Date / Time fluoxetine [From Prozac] AdvReac Severe seeing Verified 07/25/22 07:15 trails celecoxib [From Celebrex] AdvReac Intermediate Shortness Verified 07/25/22 07:15 of Breath diclofenac AdvReac Intermediate acid reflux Verified 07/25/22 07:15 eszopiclone [From Lunesta] AdvReac Intermediate sleep walk Verified 07/25/22 07:15 gabapentin AdvReac Intermediate Hypertensio Verified 07/25/22 07:15 n meloxicam AdvReac Intermediate Shortness Verified 07/25/22 07:15 of Breath meperidine [From Demerol] AdvReac Intermediate Nausea and Verified 07/25/22 07:15 Vomiting NSAIDS (Non-Steroidal AdvReac Intermediate acid reflux Verified 07/25/22 07:15 Anti-Inflamma oxycodone [From Percocet] AdvReac Intermediate Nausea and Verified 07/25/22 07:15 Vomiting venlafaxine [From Effexor] AdvReac Intermediate hot flashes Verified 07/25/22 07:15 zolpidem [From Ambien] AdvReac Unknown Unknown Verified 07/25/22 07:15 ezetimibe AdvReac Joint Pain Verified 07/29/22 06:27 nickel Allergy Unknown Unknown Uncoded 07/25/22 07:15 cholestryram powder AdvReac Intermediate Muscle Pain Uncoded 07/25/22 07:15 statin drugs AdvReac Intermediate Muscle Pain Uncoded 07/25/22 07:15 Home Medications Medication Instructions Recorded Confirmed Last Taken Type acetaminophen 300 mg-codeine 30 mg 1 tab PO Q4H pain 01/19/22 07/27/22 Unknown History tablet albuterol sulfate 90 mcg/actuation 2 puff inhalation Q4H PRN wheezing 01/19/22 07/27/22 Unknown History aerosol inhaler fluticasone propionate 50 1 spray intranasal DAILY 01/19/22 07/27/22 Unknown History mcg/actuation nasal spray,suspension losartan 50 mg tablet 50 mg PO DAILY 01/19/22 07/27/22 Unknown History acetaminophen 500 mg tablet 1 tab PO Q6H PRN Pain 06/21/22 07/27/22 Unknown History biotin 5 mg capsule 5 mg PO DAILY 06/21/22 07/27/22 Unknown History cholecalciferol (vitamin D3) 25 25 mcg PO DAILY 06/21/22 07/27/22 Unknown History mcg (1,000 unit) capsule (Vitamin D3) cimetidine 400 mg tablet 400 mg PO BID 06/21/22 07/27/22 Unknown History docusate sodium 100 mg capsule 100 mg PO DAILY 06/21/22 07/27/22 Unknown History fluticasone propionate 115 2 puff inhalation BID 06/21/22 07/27/22 07/25/22 History mcg-salmeterol 21 mcg/actuation HFA inhaler (Advair HFA) hydrochlorothiazide 12.5 mg tablet 1 tab PO DAILY 06/21/22 07/27/22 Unknown History imatinib 400 mg tablet 400 mg PO DAILY 06/21/22 07/27/22 Unknown History melatonin 5 mg tablet 5 mg PO BEDTIME 06/21/22 07/27/22 Unknown History multivitamin 1 tab PO DAILY 06/21/22 07/27/22 Unknown History Exam Airway Mallampati Class: I TM Dist: <=3cm Neck ROM: Full Denture: Upper and Lower Heart: ok Lungs: ok Assessment and Plan Assessment Anesthesia Assessment: Anesthesia Plan Discussed Final Anesthetic Review NPO: Yes ASA Class: III Final Preanesthetic Review: No Changes in Pt Med Stat, Meds/Allgs Chart Reviewed, Consent Obtained/Reviewed and Anes Risks/Benef Reviewed Patient Risk: Intermediate Procedure Risk: Intermediate Anesthetic Plan Anesthetic Plan: GA and Agree w/ Assess. and Plan Disposition: Standard PACU
--- NOTE | ~2022-07-29 | FL_ITS ---
EXAMINATION: XR FLUOROSCOPY WITH IMAGES CLINICAL INFORMATION: Sacroiliac joint innervation stimulator implant. COMPARISON: 06/10/2022 TECHNIQUE: Fluoroscopy Supervised By: Dr. Howard Rodas. Fluoroscopy Time: 0.4 minutes. Cumulative Dose: 17.3 mGy-cm DAP: 4.73 Gy-cm2. Images: 3. FINDINGS: Imaging demonstrates placement of wires adjacent to both sacroiliac joints. There is a tangle of linear densities just superior to the right sacroiliac joint some of which appears be related to the stimulator wire however some may also be related to an overlying sponge and clinical correlation is suggested. FL/FL guidance in OR IMPRESSION: Intraoperative fluoroscopy for pain management procedure.
[2022-07-29 06:19] VITALS: BP 145/79; PULSE 92; RESP 18; TEMP 36.6; O2SAT 98
[2022-07-29 06:20] LABS: Glucose, Whole Blood 117 mg/dL (60-115)
[2022-07-29 06:21] VITALS: BMI 35.3
[2022-07-29] MEDS: Lactated Ringers 1,000 ML 100 ML IVCONT (06:43)
--- NOTE | 2022-07-29 06:56 | PC.NURSE ---
left lower extremety with silver dollar sized reddened area warm and tender made aware to pt and Dr. Rodas pt with CML. Dr. Rodas at bedside negative homans. takes chemo med since nov 2019 (pill) every day. poc 117, hgbaic 6.7.
--- NOTE | 2022-07-29 07:11 | PC.NURSE ---
risks and benefits of proceeding with procedure discussed with pt. MRSA swab obtained bilat nares
--- NOTE | 2022-07-29 07:17 | PC.NURSE ---
preop cefazolin 2g iv preop ordered and plan for post-op abx discussed. pt decision to move forward with procedure and agrees with plan.
--- NOTE | 2022-07-29 07:22 | MHC.SHP ---
Pre-Procedural Eval Section A Date of Service: 07/29/22 The patient is an INPATIENT: No Changes since office visit: Yes Patient answered all questions; No Cold of Flu in the past 2 weeks, No New Medical Problems and No Changes in Medication The History & Physical has been completed within 30 days and I have reviewed it.: No Section B Chief Complaint: Sacroiliitis, not elsewhere classified,Sacrococcyg Details of Present Illness: as above Relevant Family History (Specify if Yes): No Relevant Social History: None Present Medications: see [facility] assessment Medical History: Significant History (CML in remission on oral chemotherapy chronically for past 2 years, diat controlled DM, HbA1c = 6.5) History of Previous Operations: No relevant previous surgery Allergies: Allergies Allergy/AdvReac Type Severity Reaction Status Date / Time fluoxetine [From Prozac] AdvReac Severe seeing Verified 07/25/22 07:15 trails celecoxib [From Celebrex] AdvReac Intermediate Shortness Verified 07/25/22 07:15 of Breath diclofenac AdvReac Intermediate acid reflux Verified 07/25/22 07:15 eszopiclone [From Lunesta] AdvReac Intermediate sleep walk Verified 07/25/22 07:15 gabapentin AdvReac Intermediate Hypertensio Verified 07/25/22 07:15 n meloxicam AdvReac Intermediate Shortness Verified 07/25/22 07:15 of Breath meperidine [From Demerol] AdvReac Intermediate Nausea and Verified 07/25/22 07:15 Vomiting NSAIDS (Non-Steroidal AdvReac Intermediate acid reflux Verified 07/25/22 07:15 Anti-Inflamma oxycodone [From Percocet] AdvReac Intermediate Nausea and Verified 07/25/22 07:15 Vomiting venlafaxine [From Effexor] AdvReac Intermediate hot flashes Verified 07/25/22 07:15 zolpidem [From Ambien] AdvReac Unknown Unknown Verified 07/25/22 07:15 ezetimibe AdvReac Joint Pain Verified 07/29/22 06:27 nickel Allergy Unknown Unknown Uncoded 07/25/22 07:15 cholestryram powder AdvReac Intermediate Muscle Pain Uncoded 07/25/22 07:15 statin drugs AdvReac Intermediate Muscle Pain Uncoded 07/25/22 07:15 Review of Systems Sugical H&P ROS: Negative: Cardiovascular, Respiratory, Neurological, Psychiatric, Allergic/Immunologic, Genitourinary, Musculoskeletal, Integumentary, Endocrine and Eyes/Ears/Nose/Throat and Yes, Specify: Constitution (obesity) and Hem-Onc (CML on chronic maintenance therapy ) Exam Surgical H&P Exam: Normal: HEENT, Normal: Heart, Normal: Lungs and Normal: Neurological and Significant Findings: Extremities (LLE mid thigh new red spot 1x1'',no local temperature, mild tenderness on palpation Tim sign is negative), Significant Findings: Abdomen (enlarged 2 to i/a and s/q fat) and Significant Findings: Skin (as above) Plan Diagnosis/Plan: Unchanged increased risk of infection because of the presence of possible cellulites ( versus innocent insect bite?) in the LLE as above was explained to the patient, the CML and DM were taken into consideration, prolonged and careful discussion had done, urgent surgery for removal of the device if the infection occurred was explained to the patient, The patient expressed understanding and wished to proceed for the surgery.The MRSA nasal swab was tested before the procedure to r/o possible chronic MRSA colonization. Antibiotics post operatively will be ordered. Time Spent With Patient Time: Total time managing care of this patient today __35__ minutes.
[2022-07-29 09:27] LABS: MRSA Nasal PCR NEGATIVE (Negative); SA Nasal PCR NEGATIVE (Negative)
[2022-07-29 10:10] VITALS: BP 148/85; PULSE 88; RESP 16; TEMP 36.2; O2SAT 94
--- NOTE | 2022-07-29 10:13 | P.BOP_ITS ---
Brief Operative Note Date of Service: 07/29/22 Pre-op diagnosis: sacroiliitis b/l si joint pain Post-op diagnosis: same Procedure: implantation of Curonics SI joint innervation stimulation device bilateral Surgeon: Howard Rodas MD Was an Electronic Controls Repairer Supervisor used for this Procedure?: No Estimated blood loss (mL): 20 Pathology: none sent Condition: stable Disposition: PACU
[2022-07-29 10:15] VITALS: BP 147/94; PULSE 83; RESP 16; O2SAT 95
--- NOTE | 2022-07-29 10:15 | P.OP_ITS ---
Operative Note Operative Note Date of Service: 07/29/22 Narrative: Bilateral sacroiliac joint innervation stimulation Curonics implantation. After obtaining informed consent the patient was brought to the operating room, she was positioned prone on the ORT were applied and the patient was induced with GLMA ?Time-out was performed delineating correct site, side, the nature of the procedure, patient's allergy, preoperative antibiotic.? All operating room staff was participating in OR time-out procedure.? The patient received cefazolin 2 gr. intravenously 30 minutes before the procedure. the patient's entire back? was prepped with ChloraPrep twice. Whole body drape was applied including Ioban film.? Sterilely draped C-arm was brought over the operating field and sq picture of right side of the pelvis was demonstrated on the screen. Attention then was concentrated on the right sacroiliac joint. 4 cm above from the patient's ? right sacral ala projection the skin was infiltrated in linear vertical fashion and? 10 blade scalpel was used to make an vertical paraspinal incision on the skin 4 cm long. The wound was widened and deepened until the superficial fascia. thorough hemostasis was performed. 16 g 15 cm introducer malleable needle was inserted through the fascia and advanced to the?right sacral ala under? intermittent anterior posterior x-ray views.sacral ala was palpated through the wound. when the position of the tip of the introducer needle was verified above this level - ? the needle advanced alongside the sacral bone curvature following the direction of the silhouette of the sacroiliac joint.? permanent stimulator catheter was inserted and advanced in the needle? When the body of the lead? reached adequate position the stirring stilet was removed from the lead and a conduction copper wire was inserted into the lead and advanced until resistance was met. The introducer needle was withdrawn with care taken not to dislodge the stimulating lead. The lead was sutured to superficial fascia using 0-0 Tycron intermittent sutures . After that attention was switched to the left side where 4 cm above from the patient's ? left sacral ala projection the skin was infiltrated in linear vertical fashion and? 10 blade scalpel was used to make an vertical paraspinal incision on the skin 4 cm long. The wound was widened and deepened until the superficial fascia. thorough hemostasis was performed. 16 g 15 cm introducer malleable needle was inserted through the fascia and advanced to the?left sacral ala under? intermittent anterior posterior x-ray views.. when the position of the tip of the introducer needle was verified on the lateral view above the level of the bone,? the needle advanced alongside the sacral bone curvature following the direction of the silhouette of the sacroiliac joint.? permanent stimulator catheter was inserted and advanced in the needle? When the body of the lead? reached adequate position the stirring stilet was removed from the lead and a conduction copper wire was inserted into the lead and advanced until resistance was met. The introducer needle was withdrawn with care taken not to dislodge the stimulating lead. The lead was sutured to superficial fascia using 0-0 Tycron intermittent sutures . The wounds were irrigated with vancomycin containing normal saline and packed with vancomycine soaked 4x4 . After that in the upper right lumbar paraspinal area? local anesthetic was injected into the skin and the vertical 5 cm incision was made using 10 blade scalpel. This wound was widened and deepened using dull dissection and hemostasis was performed using electrocautery. After that this wound was irrigated with vancomycin containing normal saline and? tunneling devices was used to connect the two wounds. The tales of the stimulating electrodes were tunneled from the distal wound to the proximal wound and tunneling device was split and withdrawn. Care was taken to form straight position of the stimulating leads. After that the ends of the plastic leads were tide on itself and then the coil was? formed from the free ends of the? two plastic leads using free? Tycron suture knots. the coil was inserted into the wound. After that both wounds were irrigated again, they were closed using 0-2 Polysorb sutures? after that 0-2 polisorb sutures were used to approximate the edges of the skin., ?[place] were applied to the skin level. ?sterile dressings with bacitracin were affixed on the both wounds. The patient was awaken, transferred to PACU, where she recovered uneventfully.
[2022-07-29 10:20] VITALS: BP 143/76; PULSE 84; RESP 16; O2SAT 96
[2022-07-29 10:25] VITALS: BP 141/86; PULSE 83; RESP 18; O2SAT 96
[2022-07-29 10:51] VITALS: TEMP 36.4
== END 2022-07-29 11:15 | disposition home or self-care (01) ==
PROVIDERS: Nurse Practitioner Family; PCP Internal Medicine; Visit Provider Anesthesiology
PROC: (CPT 64555; principal; 2022-07-29 07:30)
DX: M46.1 Sacroiliitis, not elsewhere classified (principal); M53.3 Sacrococcygeal disorders, not elsewhere classified; M48.00 Spinal stenosis, site unspecified; M51.36 Other intervertebral disc degeneration, lumbar region; G89.4 Chronic pain syndrome; M43.16 Spondylolisthesis, lumbar region; M17.0 Bilateral primary osteoarthritis of knee; J44.9 Chronic obstructive pulmonary disease, unspecified; I10 Essential (primary) hypertension; E66.01 Morbid (severe) obesity due to excess calories; Z68.36 Body mass index [BMI] 36.0-36.9, adult; E11.9 Type 2 diabetes mellitus without complications; Z79.899 Other long term (current) drug therapy; Z99.89 Dependence on other enabling machines and devices; Z88.8 Allergy status to other drugs, medicaments and biological substances; Z96.653 Presence of artificial knee joint, bilateral
CPT/HCPCS: 64555 ×2; 82947; 87640; 87641; C1816; J0690; J2250; J2795; J3010; J3370

== ENCOUNTER → 2022-08-04 10:03 | Outpatient (BNVA) | payer MEDICARE, OTHER, SELFPAY | PROVIDERS: PCP Internal Medicine; Visit Provider Anesthesiology | DX: M48.00 Spinal stenosis, site unspecified (principal); M51.36 Other intervertebral disc degeneration, lumbar region; M43.16 Spondylolisthesis, lumbar region; M46.1 Sacroiliitis, not elsewhere classified; M17.0 Bilateral primary osteoarthritis of knee; M53.3 Sacrococcygeal disorders, not elsewhere classified; G89.4 Chronic pain syndrome; Z96.653 Presence of artificial knee joint, bilateral | CPT/HCPCS: 99212 ==

== ENCOUNTER → 2022-08-11 10:09 | Outpatient (BNVA) | payer MEDICARE, OTHER, SELFPAY | PROVIDERS: PCP Internal Medicine; Visit Provider Anesthesiology | DX: M48.00 Spinal stenosis, site unspecified (principal); M51.36 Other intervertebral disc degeneration, lumbar region; M43.16 Spondylolisthesis, lumbar region; G89.4 Chronic pain syndrome; M46.1 Sacroiliitis, not elsewhere classified; M17.0 Bilateral primary osteoarthritis of knee; M53.3 Sacrococcygeal disorders, not elsewhere classified; Z96.653 Presence of artificial knee joint, bilateral | CPT/HCPCS: 99212 ==

== ENCOUNTER → 2022-11-03 11:31 | Outpatient (BNVA) | payer MEDICARE, MEDICAID, SELFPAY | PROVIDERS: PCP Internal Medicine; Visit Provider Anesthesiology | DX: Z46.9 Encounter for fitting and adjustment of unspecified device (principal) | CPT/HCPCS: 99211 ==

== ENCOUNTER 2024-10-09 13:57 | Outpatient (AMB) | payer MEDICARE, MEDICAID, SELFPAY ==
--- NOTE | 2024-10-09 14:04 | A.OFFVIS_ITS ---
Vital Signs 10/09/24 14:05 Height 5 ft 2 in Weight 188 lb BMI 34.4 BP 165/88 H Blood Pressure Location Lt brachial Position Sitting Respiration 18 Pulse 80 Pulse Source Pulse Oximeter Pulse Oximetry (%) 95 Oxygen Delivery Method Room Air Intake Visit Reasons: Neuritis [employer] Server Required: No Allergies fluoxetine (From Prozac) Adverse Reaction (Severe, Verified 10/09/24 14:10) seeing trails celecoxib (From Celebrex) Adverse Reaction (Intermediate, Verified 10/09/24 14:10) Shortness of Breath diclofenac Adverse Reaction (Intermediate, Verified 10/09/24 14:10) acid reflux eszopiclone (From Lunesta) Adverse Reaction (Intermediate, Verified 10/09/24 14:10) sleep walk gabapentin Adverse Reaction (Intermediate, Verified 10/09/24 14:10) Hypertension meloxicam Adverse Reaction (Intermediate, Verified 10/09/24 14:10) Shortness of Breath meperidine (From Demerol) Adverse Reaction (Intermediate, Verified 10/09/24 14:10) Nausea and Vomiting NSAIDS (Non-Steroidal Anti-Inflamma Adverse Reaction (Intermediate, Verified 10/09/24 14:10) acid reflux oxycodone (From Percocet) Adverse Reaction (Intermediate, Verified 10/09/24 14 :10) Nausea and Vomiting venlafaxine (From Effexor) Adverse Reaction (Intermediate, Verified 10/09/24 14:10) hot flashes zolpidem (From Ambien) Adverse Reaction (Unknown, Verified 10/09/24 14:10) Unknown ezetimibe Adverse Reaction (Verified 10/09/24 14:10) Joint Pain nickel Allergy (Unknown, Uncoded 11/03/22 11:41) Unknown cholestryram powder Adverse Reaction (Intermediate, Uncoded 11/03/22 11:41) Muscle Pain statin drugs Adverse Reaction (Intermediate, Uncoded 11/03/22 11:41) Muscle Pain HPI Comments Details: Moriah is back in my office after 2 years of absence. Two years ago it appears to me that most of her pain in the lumbar spine is actually related to sacroiliitis. She was treated with sacroiliac joint innervation stimulation by cure on X. At that time she reported good pain relief. However now she feels that her pain is mostly related to spinal stenosis. She reports difficulty walking, she reports numbness in the bilateral toes. She also states that walking with leaning forward makes her pain better. Long time ago she was diagnose with spinal stenosis however now most likely the spinal stenosis was progressing. She went to [facility] I offered her spinal cord stimulator. Patient is not very sure whether she wants spinal cord stimulator to be inserted into her. She had psychological evaluation done with psychiatrist at [facility]. The psychological evaluation can not be taken into consideration in this office. She is also suffering from leukemia. She is on chronic chemotherapy. According to her oncologist her life expectancy is about 20 years. She is taking Scemblex medication. She does not know what her platelets number are. She receiving regular treatments from local water resources program director. She reports moderate improvement from acupuncture interventions. Prior :? Bilateral sacroiliac joint injections -90% pain relief for the 1st 2 hours after the injection.? She reports 70% of pain relief for the next 3 hours the injection .? She reports after that her pain started to slowly come back.? This report is properly aligned with the longevity of action of the ropivacaine.? I discussed possibility of treating her condition with continues sacroiliac joint injections with steroids.? I also gave her option of really act joint innervation stimulation.? She was very concerned about steroid injections.? She is diabetic.? I agree with her on this I think the steroids are dangerous for the patient like her who is currently on chemotherapy for cancer and receives chronic oral chemotherapy.? I believe that she is a cancer patient would be exempt from psychological evaluation. c/o? lower back pain.? She reports that this pain started many years ago and she reported that someone local orthopedics or neurosurgeon offered her fusion of the lumbar spine with screws and rods.? While scheduling the patient for the procedure the regular workup was performed and some abnormalities were found in patient's blood.? She was diagnosed with chronic myelocitic leukemia and she received chemotherapy.? After that the issue of the surgery became moot.? She received chemotherapy and she currently in remission.? She reports severe pain in the projection of the right as well as left lower back.? ? Shewas subject of [facility] and received multiple injections in this organization.? The nature of injections is not available for us.? She received multiple sessions of physical therapy in [facility] she denies any help from physical therapy he reports that she had an MRI of the lumbar spine results of which dictated as below. [facility] Medical History (Updated 08/04/22 @ 11:35 by Howard Rodas MD) Lumbar stenosis Osteopenia Uterine cancer Elevated cholesterol Dermatographia Tendinitis of both knees Bursitis of both knees High blood pressure Chronic depression Arthritis Diabetes Moderate COPD (chronic obstructive pulmonary disease) Chronic myeloid leukemia Surgical History (Updated 07/27/22 @ 13:50 by Kenzie Ching RN) Hx of cataract extraction History of surgery History of bilateral carpal tunnel release Hx of tonsillectomy Hx of colonoscopy Hx of left knee surgery History of excision of pilonidal cyst History of breast lump/mass excision Hx of hysterectomy History of dilatation and curettage History of total bilateral knee replacement Social History Are you a primary career professional to a significant other at home: No Do you presently have visiting nurse or other home services: Yes (home health aid 3X/week) Patient Tobacco Use Status: Former Tobacco user Tobacco use type: Cigarette Review of Systems Const All systems reviewed & are unremarkable except as noted in HPI and below ENT Reports Normal hearing present Neuro Reports Normal hearing present, Denies Abnormal speech present, Denies confusion and Denies Sensory deficit (Neuro) Psych Denies confusion Physical Exam Vital Signs: Last Vital Signs Pulse 80 10/09/24 14:05 Resp 18 10/09/24 14:05 BP 165/88 H 10/09/24 14:05 Pulse Ox 95 10/09/24 14:05 Oxygen Delivery Method Room Air 10/09/24 14:05 BMI result Body Mass Index 34.4 Const General: No confusion Nutritional Appearance: obese morbidly obese Orientation/consciousness: No confusion Eyes General: appearance normal, both eyes and all related structures Pupils: Equal, round and reactive pupils present EOM: EOMs intact bilaterally Neck Neck: Yes full ROM Chest Chest palpation & inspection: normal inspection of the chest Resp Effort & Inspection: normal respiratory effort, able to speak in complete sentences, normal respiratory pattern, no audible wheezes and no cough Cardio Jugular venous distension: no JVD GI Inspection: Yes normal to inspection Back/Spine/Pelvis Other: She is able to stand on bilateral tiptoes and on bilateral heels demonstrating normal strength of bilateral lower extremities. She denies pelvic organ dysfunction, she denies incontinence without awareness, she admits stress incontinence. She denies incontinence with stool. Denies urinary retention. She denies Valsalva maneuver aggravates her pain. SLR test is negative for pain increase in the lumbar spine dorsiflexion of bilateral feet does not aggravate her pain. Bryson test pelvic compression test and pelvic destruction tests are all positive for pain increase. She reports pain aggravated bilaterally more on the left and less on the right however she on her questionnaire page noted dried pain as significant pain more than on the right. Tenderness of palpation and swelling are noted on bilateral knees. Neuro General: No confusion Cranial nerves: Yes Equal, round and reactive pupils present and Yes Normal hearing present Speech: No Abnormal speech present Gait exam (Neuro): Normal gait present Motor exam (neuro): 5/5 motor strength present throughout Sensory Exam: No Sensory deficit (Neuro) Extrem General: No pedal edema Psych Speech and movement: Normal speech and movement present Affect: normal affect Attitude: cooperative Thought process: Normal thought process present Thought content: Normal thought content present Insight: Good insight present (Psych) Judgement: Good judgement present (Psych) Assessment & Plan Assessment & Plan (1) Central stenosis of spinal canal: Code(s): M48.00 - Spinal stenosis, site unspecified Category: Medical (2) Disc degeneration, lumbar: Code(s): M51.36 - Other intervertebral disc degeneration, lumbar region Category: Medical (3) Spondylolisthesis, lumbar region: Code(s): M43.16 - Spondylolisthesis, lumbar region Category: Medical (4) Chronic pain syndrome: Code(s): G89.4 - Chronic pain syndrome Category: Medical (5) Sacroiliitis: Code(s): M46.1 - Sacroiliitis, not elsewhere classified Category: Medical (6) Osteoarthritis of knees, bilateral: Code(s): M17.0 - Bilateral primary osteoarthritis of knee Category: Medical (7) Status post total knee replacement, bilateral: Code(s): Z96.653 - Presence of artificial knee joint, bilateral Category: Surgical (8) Pain of both sacroiliac joints: Code(s): M53.3 - Sacrococcygeal disorders, not elsewhere classified Category: Medical Plan She does not use cure on X device anymore because she feels that her pain is coming from the lumbar spine. Discussion see as above. She is not sure whether she wants to go for spinal cord stimulator trial but I am ready for her to perform the trial if she wants to go for it. I also explained to her that I would need psychological evaluation before the trial, I would need at least reports if not images of the MRI is done at [facility] with thoracic spine MRI and lumbar spine MRI. At the best I would like to have thoracic spine MRI disc for my consideration of her anatomy. She has spinal stenosis however she was denied spinal surgery by [facility] surgeon because apparently her back is ? fused. They offered her spinal cord stimulator trial with [facility]. She also requested me to put her on intermittent opioid prescriptions. I explained to her that we do not prescribe short scripts of the opioid medications. However considering that she is a cancer patient I can admit her to chronic opioid program on minimal dose of buprenorphine. I explained that to the patient. If she decides to see me again she would need to give me a call and schedule appointment with us. Patient Instructions: I here by testify that I spent 30 minutes in conversation with this patient as well as planning her care and organizing this note. Coding Level of Care Code Est Pt Level 4 (82152) Diagnoses Central stenosis of spinal canal M48.00 Disc degeneration, lumbar M51.36 Spondylolisthesis, lumbar region M43.16 Chronic pain syndrome G89.4 Sacroiliitis M46.1 Osteoarthritis of knees, bilateral M17.0 Status post total knee replacement, bilateral Z96.653 Pain of both sacroiliac joints M53.3
[2024-10-09 14:05] VITALS: BP 165/88; PULSE 80; RESP 18; O2SAT 95; BMI 34.4
--- OUTSIDE RECORDS SUMMARY | 2024-10-09 16:42 | XMS_ITS | Encounter Summary ---
Author Organization [facility] Address [address] [place] [address] Care Team Providers Care Credit Processor Name Role Phone Carmen Rojo MD Primary Care Provider [phone] Encounter Details Date Type Department Care Team Description 12/02/2020 Nurse Only [facility] [address] [place] [address] Madi Davidson RN Social History Tobacco Use Types Packs/Day Years Used Date Smoking Tobacco: Former Smokeless Tobacco: Never Alcohol Use Standard Drinks/Week Comments No 0 (1 standard drink = 0.6 oz pur e alcohol) Sex and Gender Information Value Date Recorded Sex Assigned at Not on file Gender Identity Not on file Sexual Orientation Not on file Job Start Date Occupation Industry Not on file Not on file Not on file COVID-19 Exposure Response Date Recorded In the last month, have you been in contact with someone who was confirmed or suspected to have Coronavirus / COVID-19? No / Unsure 11/16/2020 11:29 AM EDT documented as of this encounter Progress Notes * Madi Davidson RN - 12/02/2020 2:39 PM EDT Patient has received Tasigna today she will start the medication tomorrow. Will send nausea medication to her local pharm in case it is needed. Lab slip to the lb here in the office patient is aware of when to draw labs. Will continue to follow. documented in this encounter Plan of Treatment Not on file documented as of this encounter Visit Diagnoses Not on filedocumented in this encounter Care Teams Credit Processor Relationship Specialty Start Date End Date Carmen Rojo MD [address] [place] [address] PCP - General Internal Medicine 10/05/22 documented as of this encounter
== END 2024-10-09 14:41 | disposition home or self-care (01) ==
LOC: HO.PMC 13:57
PROVIDERS: PCP Student in an Organized Health Care Education/Training Program; Visit Provider Anesthesiology
DX: M46.1 Sacroiliitis, not elsewhere classified (principal); M17.0 Bilateral primary osteoarthritis of knee; Z96.653 Presence of artificial knee joint, bilateral; M53.3 Sacrococcygeal disorders, not elsewhere classified
CPT/HCPCS: 99214

== ENCOUNTER → 2024-10-09 13:57 | Outpatient (BNVA) | payer OTHER, SELFPAY | PROVIDERS: PCP Student in an Organized Health Care Education/Training Program; Visit Provider Anesthesiology | DX: M46.1 Sacroiliitis, not elsewhere classified (principal); M48.00 Spinal stenosis, site unspecified; M51.360 Other intervertebral disc degeneration, lumbar region with discogenic back pain only; M43.16 Spondylolisthesis, lumbar region; G89.4 Chronic pain syndrome; M17.0 Bilateral primary osteoarthritis of knee; Z96.653 Presence of artificial knee joint, bilateral; M53.3 Sacrococcygeal disorders, not elsewhere classified | CPT/HCPCS: 99212 ==